=== PATIENT | female | born 1970 | race Caucasian/White ===

== ENCOUNTER 2017-05-11 19:22 | Inpatient (IN) | payer BC, MEDICAID ==
[~2017-05-11] VITALS: Ht 170.2 cm; Wt 88.9 kg
[~2017-05-11 19:22] MED LIST: etomidate 2mg/ml inj. ONE; rocuronium 10mg/ml inj IV ONE; sod chloride 0.9% 10ml flush syringe IV ONE
[2017-05-11] MEDS ORDERED: propofol 1000mg/100ml bottle 100 ML IV ONE ×3 (19:40→19:55)
[2017-05-11] MEDS ORDERED: MIDAZolam 5mg/ml 2ml vial IV ONE ×2 (19:40→19:55)
[2017-05-11] MEDS ORDERED: etomidate 2mg/ml inj. IV ONE ×2 (19:40→19:55)
[2017-05-11] MEDS ORDERED: rocuronium 10mg/ml inj IV ONE ×2 (19:40→19:55)
[2017-05-11] MEDS ORDERED: normal saline 1000ML IV soln IVB ONE (19:55)
[2017-05-11] MEDS ORDERED: metroNIDAZOLE-Flagyl 500mg/NS 100 ML IV STA (19:59)
[2017-05-11] MEDS ORDERED: vancomycin/NS 1 GM ADD-VANTAGE 250 ML IV ONE (20:00)
[2017-05-11] MEDS ORDERED: piperacillin/tazo 3.375gm/50ml 50 ML IV ONE (20:00)
[2017-05-11 20:13] LABS: URINE HCG NEGATIVE (NEG)
[2017-05-11 20:14] LABS: PARTIAL THROMBOPLASTIN TIME 26 SECONDS (22-32); PROTHROMBIN TIME 10.1 SECONDS (9.0-12.0)
[2017-05-11 20:22] LABS: CLARITY,URINE Clear (Clear); COLOR,URINE Yellow (Yellow); GLUCOSE, URINE Negative (Neg); KETONES,URINE Trace mg/dl (Neg); LEUKOCYTE ESTERASE ,URINE Negative (Neg); NITRITES, URINE Negative (Neg); OCCULT BLOOD,URINE Trace-Intact (Neg); PROTEIN,URINE 30 mg/dl (Neg)
[2017-05-11 20:25] LABS: ABG BASE EXCESS -2.8 mmol/L (-2.0-3.0); ABG HCO3 21.5 mmol/L (22.0-26.0); ABG OXYGEN SATURATION 98.8 % (95-98); ABG PCO2 (T) 35.8 mmHg (32.0-45.0); ABG PH (T) 7.396 (7.350-7.450); ABG PO2 (T) 164.3 mmHg (83-108); FCOHb 0.2 % (0.5-1.5); FMetHb 0.2 % (0.3-1.12); FO2Hb 98.4 % (94-100); MINUTE VOLUME 9 L/min; PEEP 5 cm H2O; RESPIRATORY RATE 18 b/min; RESPIRATORY RATE (OBSERVED) 18 b/min; TIDAL VOLUME 450 mL; TOTAL HEMOGLOBIN 12.7 G/dl (12.0-16.0)
[2017-05-11 20:28] LABS: URINE AMPHETAMINE SCREEN NEGATIVE (Neg); URINE BARBITUATE SCREEN NEGATIVE (Neg); URINE BENZODIAZEPINES SCREEN POSITIVE (Neg); URINE CANNABINOID SCREEN NEGATIVE (Neg); URINE COCAINE SCREEN NEGATIVE (Neg); URINE METHADONE SCREEN NEGATIVE (Neg); URINE OPIATE SCREEN NEGATIVE (Neg); URINE PHENCYCLIDINE SCREEN NEGATIVE (Neg)
[2017-05-11 20:29] LABS: UA COLLECTION TYPE FOLEY CATH
[2017-05-11 20:31] LABS: ALANINE AMINOTRANSFERASE 31 U/L (12-78); ALBUMIN 3.6 G/DL (3.4-5.0); ALKALINE PHOSPHATASE 70 IU/L (46-116); ANION GAP 15 (8-16); ASPARTATE AMINO TRANSFERASE 14 U/L (10-37); BILIRUBIN,TOTAL 0.6 MG/DL (0.1-1.0); BLOOD UREA NITROGEN 8 MG/DL (7-18); BUN/CREATININE RATIO 7.3 (6.6-38.0); CHLORIDE 100 MMOL/L (99-107); GLUCOSE 175 MG/DL (70-104); MAGNESIUM 1.9 MG/DL (1.5-2.4); POTASSIUM 3.2 MMOL/L (3.5-5.1); SODIUM 139 MMOL/L (135-145); TOTAL CARBON DIOXIDE 24.2 MMOL/L (24-32); TOTAL PROTEIN 7.3 G/DL (6.4-8.2); eGFR 54 ML/MIN
[2017-05-11 20:32] LABS: BACTERIA,URINE FEW /HPF (Neg); WBC,URINE NONE SEEN /HPF (0-4)
[2017-05-11 20:33] LABS: MUCUS STRANDS FEW /LPF (Neg); SQUAMOUS EPITHELIAL CELL,UR FEW /LPF (FEW)
[2017-05-11] MEDS ORDERED: ALPR-624 PO (20:33)
[2017-05-11] MEDS ORDERED: BENZ-16 PO (20:33)
[2017-05-11] MEDS ORDERED: LORA10TA7 PO (20:34)
[2017-05-11] MEDS ORDERED: DIVA-81 PO (20:34)
[2017-05-11 20:35] LABS: ACETAMINOPHEN < 2.0 UG/ML (10-30); ETHANOL < 0.010 GM/DL (0.0-0.010)
[2017-05-11] MEDS ORDERED: ZOLP5TAB8 PO (20:35)
[2017-05-11] MEDS ORDERED: HYDR-3965 PO (20:35)
[2017-05-11 20:38] LABS: BASOPHILS % (AUTO) 0.1 % (0-1); EOSINOPHILS # (AUTO) 0.1 X10'3 (0-0.9); EOSINOPHILS % (AUTO) 1.2 % (0-6); HEMATOCRIT 35.5 % (35.0-45.0); HEMOGLOBIN 12.6 g/dl (12.0-16.0); LYMPHOCYTES # (AUTO) 1.6 X10'3 (1.1-4.8); LYMPHOCYTES % (AUTO) 30.1 % (21-51); MEAN CORPUSCULAR HEMOGLOBIN 32.3 PG (27.0-31.0); MEAN CORPUSCULAR HGB CONC 35.4 % (33.0-36.5); MEAN CORPUSCULAR VOLUME 91.3 FL (78-98); MEAN PLATELET VOLUME 6.9 FL (7.4-10.4); MONOCYTES # (AUTO) 0.4 X10'3 (0-0.9); MONOCYTES % (AUTO) 6.8 % (2-12); NEUTROPHILS # (AUTO) 3.3 X10'3 (1.8-7.7); NEUTROPHILS % (AUTO) 61.8 % (42-75); PLATELET COUNT 242 X10'3 (140-440); RED BLOOD COUNT 3.89 X10'6 (4.20-5.60); RED CELL DISTRIBUTION WIDTH 13.1 % (11.5-14.5); WHITE BLOOD COUNT 5.3 X10'3 (4.5-11.0)
[2017-05-11] MEDS ORDERED: QUET-1 PO (20:56)
[2017-05-11] MEDS ORDERED: potassium Cl 40MEQ/NS 500ml 500 ML IV PRN ×2 (21:40)
[2017-05-11] MEDS ORDERED: potassium Cl 40MEQ/250ML bag 250 ML IV PRN (21:40)
[2017-05-11] MEDS ORDERED: sodium phosphate inj. 15 MMOL in dextrose 5%-water 150 ML IV PRN (21:40)
[2017-05-11] MEDS ORDERED: magnesium 2GM in 50ml NS 50 ML IV PRN (21:40)
[2017-05-11] MEDS ORDERED: sodium phosphate inj. 30 MMOL in dextrose 5%-water 250 ML IV PRN (21:40)
[2017-05-11] MEDS ORDERED: magnesium 4gm in 100ml NS 100 ML IV PRN (21:40)
[2017-05-11] MEDS ORDERED: albuterol 2.5 MG/3 ML nebule NEB PRN (21:40)
[2017-05-11 22:10] LABS: PHOSPHORUS 3.1 MG/DL (2.3-4.5)
[2017-05-11] MEDS: potassium Cl 40MEQ/250ML bag 250 ML IV PRN (22:47)
[2017-05-11] MEDS: pantoprazole 40 MG vial IV SCH (22:55)
[2017-05-11 23:00] VITALS: BP 117/80
[2017-05-11 23:06] LABS: OXYGEN SATURATION (MIXED VEN) 78.9 % (60-80)
[2017-05-11 23:10] LABS: ABG HCO3 20.8 mmol/L (22.0-26.0); ABG OXYGEN SATURATION 97.5 % (95-98); ABG PCO2 (T) 27.2 mmHg (32.0-45.0); ABG PH (T) 7.495 (7.350-7.450); ALLEN'S TEST Positive; FCOHb 0.3 % (0.5-1.5); FMetHb 0.3 % (0.3-1.12); FO2Hb 96.9 % (94-100); MINUTE VOLUME 9 L/min; PATIENT TEMPERATURE 35.2; PEEP 5 cm H2O; RESPIRATORY RATE 18 b/min; TIDAL VOLUME 450 mL; TOTAL HEMOGLOBIN 11.5 G/dl (12.0-16.0)
[2017-05-12] VITALS (22 sets, daily range): BP systolic 91–157; BP diastolic 60–92
[2017-05-12] MEDS ORDERED: midazolam 100mg in NS 100ml 100 ML IV PRN (00:20)
[2017-05-12] MEDS: FENTANYL-0.9 % NACL/PF 100 ML IV PRN (00:50)
[2017-05-12] MEDS ORDERED: magnesium 2GM in 50ml NS 50 ML IV ONE (01:15)
[2017-05-12] MEDS: normal saline 1000ml 1,000 ML IV SCH ×2 (01:29→10:45)
[2017-05-12 01:39] LABS: INR 1.1 INR; PARTIAL THROMBOPLASTIN TIME 28 SECONDS (22-32); PROTHROMBIN TIME 11.2 SECONDS (9.0-12.0)
[2017-05-12] MEDS: piperacillin-tazo 2.25gm/50ml 50 ML IV SCH ×4 (01:39→19:34)
[2017-05-12 01:40] LABS: BASOPHILS % (AUTO) 0.1 % (0-1); EOSINOPHILS % (AUTO) 0.5 % (0-6); HEMATOCRIT 28.4 % (35.0-45.0); HEMOGLOBIN 10.1 g/dl (12.0-16.0); LYMPHOCYTES # (AUTO) 1.9 X10'3 (1.1-4.8); LYMPHOCYTES % (AUTO) 27.2 % (21-51); MEAN CORPUSCULAR HEMOGLOBIN 32.3 PG (27.0-31.0); MEAN CORPUSCULAR HGB CONC 35.6 % (33.0-36.5); MEAN CORPUSCULAR VOLUME 90.8 FL (78-98); MEAN PLATELET VOLUME 6.6 FL (7.4-10.4); MONOCYTES # (AUTO) 0.6 X10'3 (0-0.9); MONOCYTES % (AUTO) 8.1 % (2-12); NEUTROPHILS # (AUTO) 4.5 X10'3 (1.8-7.7); NEUTROPHILS % (AUTO) 64.1 % (42-75); PLATELET COUNT 219 X10'3 (140-440); RED BLOOD COUNT 3.13 X10'6 (4.20-5.60); RED CELL DISTRIBUTION WIDTH 12.4 % (11.5-14.5)
[2017-05-12 02:55] LABS: ACETAMINOPHEN < 2.0 UG/ML (10-30); ALANINE AMINOTRANSFERASE 26 U/L (12-78); ALBUMIN 2.9 G/DL (3.4-5.0); ALKALINE PHOSPHATASE 53 IU/L (46-116); ASPARTATE AMINO TRANSFERASE 14 U/L (10-37); BILIRUBIN,TOTAL 0.6 MG/DL (0.1-1.0); BLOOD UREA NITROGEN 7 MG/DL (7-18); BUN/CREATININE RATIO 7.8 (6.6-38.0); CALCIUM 7.7 MG/DL (8.5-10.1); GLUCOSE 84 MG/DL (70-104); MAGNESIUM 1.9 MG/DL (1.5-2.4); PHOSPHORUS 2.2 MG/DL (2.3-4.5); TOTAL PROTEIN 5.9 G/DL (6.4-8.2); eGFR 68 ML/MIN
[2017-05-12 03:14] LABS: ANION GAP 10 (8-16); CHLORIDE 107 MMOL/L (99-107); SODIUM 142 MMOL/L (135-145)
[2017-05-12 03:23] LABS: VALPROATE 124.2 UG/ML (50-100)
[2017-05-12] MEDS ORDERED: calcium chloride 100 MG/1 ML inj IV ONE (03:55)
[2017-05-12 05:01] LABS: ABG BASE EXCESS -2.7 mmol/L (-2.0-3.0); ABG HCO3 21.6 mmol/L (22.0-26.0); ABG OXYGEN SATURATION 97.5 % (95-98); ABG PCO2 (T) 35.6 mmHg (32.0-45.0); ABG PO2 (T) 111.4 mmHg (83-108); ALLEN'S TEST Positive; FCOHb 0.2 % (0.5-1.5); FMetHb 0.1 % (0.3-1.12); FO2Hb 97.2 % (94-100); MINUTE VOLUME 7 L/min; PATIENT TEMPERATURE 36.9; PEEP 5 cm H2O; RESPIRATORY RATE 14 b/min; RESPIRATORY RATE (OBSERVED) 14 b/min; TIDAL VOLUME 450 mL; TOTAL HEMOGLOBIN 10.6 G/dl (12.0-16.0)
[2017-05-12 05:49] LABS: ALANINE AMINOTRANSFERASE 26 U/L (12-78); ALBUMIN 2.8 G/DL (3.4-5.0); ALKALINE PHOSPHATASE 52 IU/L (46-116); ANION GAP 11 (8-16); ASPARTATE AMINO TRANSFERASE 11 U/L (10-37); BILIRUBIN,TOTAL 0.5 MG/DL (0.1-1.0); BLOOD UREA NITROGEN 7 MG/DL (7-18); BUN/CREATININE RATIO 7.8 (6.6-38.0); CALCIUM 9.2 MG/DL (8.5-10.1); CHLORIDE 107 MMOL/L (99-107); GLUCOSE 105 MG/DL (70-104); MAGNESIUM 2.7 MG/DL (1.5-2.4); PHOSPHORUS 3.8 MG/DL (2.3-4.5); POTASSIUM 3.3 MMOL/L (3.5-5.1); SODIUM 142 MMOL/L (135-145); TOTAL CARBON DIOXIDE 23.8 MMOL/L (24-32); TOTAL PROTEIN 5.7 G/DL (6.4-8.2); TROPONIN I < 0.04 NG/ML (0.0-0.05); VALPROATE 120 UG/ML (50-100); eGFR 68 ML/MIN
[2017-05-12] MEDS: pantoprazole 40 MG vial IV SCH (08:09)
[2017-05-12] MEDS: heparin, porcine 5000 units/ml vial SQ SCH ×2 (08:09→19:34)
[2017-05-12] MEDS: potassium Cl 40MEQ/250ML bag 250 ML IV PRN ×2 (08:24→20:42)
[2017-05-12 09:13] LABS: ALANINE AMINOTRANSFERASE 23 U/L (12-78); ALBUMIN 2.9 G/DL (3.4-5.0); ALKALINE PHOSPHATASE 56 IU/L (46-116); ANION GAP 11 (8-16); ASPARTATE AMINO TRANSFERASE 11 U/L (10-37); BILIRUBIN,TOTAL 0.5 MG/DL (0.1-1.0); BLOOD UREA NITROGEN 5 MG/DL (7-18); CALCIUM 8.2 MG/DL (8.5-10.1); CHLORIDE 108 MMOL/L (99-107); GLUCOSE 113 MG/DL (70-104); POTASSIUM 3.6 MMOL/L (3.5-5.1); SODIUM 142 MMOL/L (135-145); TOTAL CARBON DIOXIDE 23.4 MMOL/L (24-32); TOTAL PROTEIN 5.8 G/DL (6.4-8.2); VALPROATE 123 UG/ML (50-100); eGFR 60 ML/MIN
[2017-05-12] MEDS ORDERED: SODIUM BICARBONATE IV SCH (10:55)
[2017-05-12] MEDS ORDERED: SODIUM CHLORIDE 0.45% IV SCH (10:55)
[2017-05-12] MEDS: sodium bicarbonate (8.4%) inj. 75 MEQ in sodium chloride 0.45% 1,000 ML IV SCH (12:56)
[2017-05-12 14:54] LABS: ALANINE AMINOTRANSFERASE 25 U/L (12-78); ALBUMIN 3.1 G/DL (3.4-5.0); ALKALINE PHOSPHATASE 59 IU/L (46-116); ANION GAP 12 (8-16); ASPARTATE AMINO TRANSFERASE 13 U/L (10-37); BILIRUBIN,TOTAL 0.5 MG/DL (0.1-1.0); BLOOD UREA NITROGEN 3 MG/DL (7-18); BUN/CREATININE RATIO 3.8 (6.6-38.0); CALCIUM 8.4 MG/DL (8.5-10.1); CHLORIDE 110 MMOL/L (99-107); GLUCOSE 111 MG/DL (70-104); POTASSIUM 3.6 MMOL/L (3.5-5.1); SODIUM 145 MMOL/L (135-145); TOTAL CARBON DIOXIDE 23.4 MMOL/L (24-32); TOTAL PROTEIN 6.2 G/DL (6.4-8.2); VALPROATE 136 UG/ML (50-100); eGFR 78 ML/MIN
[2017-05-12 17:24] LABS: ALANINE AMINOTRANSFERASE 24 U/L (12-78); ALBUMIN 3.2 G/DL (3.4-5.0); ALKALINE PHOSPHATASE 63 IU/L (46-116); ANION GAP 9 (8-16); ASPARTATE AMINO TRANSFERASE 13 U/L (10-37); BILIRUBIN,TOTAL 0.7 MG/DL (0.1-1.0); BLOOD UREA NITROGEN 2 MG/DL (7-18); BUN/CREATININE RATIO 2.5 (6.6-38.0); CALCIUM 8.6 MG/DL (8.5-10.1); CHLORIDE 109 MMOL/L (99-107); GLUCOSE 97 MG/DL (70-104); POTASSIUM 3.4 MMOL/L (3.5-5.1); SODIUM 144 MMOL/L (135-145); TOTAL CARBON DIOXIDE 25.6 MMOL/L (24-32); TOTAL PROTEIN 6.4 G/DL (6.4-8.2); eGFR 78 ML/MIN
[2017-05-12 17:47] LABS: VALPROATE 163 UG/ML (50-100)
[2017-05-12 21:41] LABS: ALANINE AMINOTRANSFERASE 25 U/L (12-78); ALBUMIN 3.2 G/DL (3.4-5.0); ALBUMIN/GLOBULIN RATIO 0.9 (1.1-1.5); ALKALINE PHOSPHATASE 62 IU/L (46-116); ANION GAP 10 (8-16); ASPARTATE AMINO TRANSFERASE 13 U/L (10-37); BILIRUBIN,TOTAL 0.7 MG/DL (0.1-1.0); BLOOD UREA NITROGEN 2 MG/DL (7-18); BUN/CREATININE RATIO 2.5 (6.6-38.0); CALCIUM 8.7 MG/DL (8.5-10.1); CHLORIDE 107 MMOL/L (99-107); GLUCOSE 107 MG/DL (70-104); POTASSIUM 3.2 MMOL/L (3.5-5.1); SODIUM 142 MMOL/L (135-145); TOTAL CARBON DIOXIDE 25.4 MMOL/L (24-32); TOTAL PROTEIN 6.6 G/DL (6.4-8.2); VALPROATE 183 UG/ML (50-100); eGFR 78 ML/MIN
[2017-05-12] MEDS ORDERED: PEG 3350/Na sulf,bicarb,Cl/KCl oral sol 4 liter bottle PO ONE (22:25)
[2017-05-13] VITALS (24 sets, daily range): BP systolic 109–162; BP diastolic 71–95
[2017-05-13] MEDS: sodium bicarbonate (8.4%) inj. 75 MEQ in sodium chloride 0.45% 1,000 ML IV SCH ×2 (01:29→10:54)
[2017-05-13] MEDS: piperacillin-tazo 2.25gm/50ml 50 ML IV SCH ×4 (01:29→20:14)
[2017-05-13 02:21] LABS: ALANINE AMINOTRANSFERASE 26 U/L (12-78); ALBUMIN 3.2 G/DL (3.4-5.0); ALBUMIN/GLOBULIN RATIO 0.9 (1.1-1.5); ALKALINE PHOSPHATASE 64 IU/L (46-116); ANION GAP 12 (8-16); ASPARTATE AMINO TRANSFERASE 19 U/L (10-37); BILIRUBIN,TOTAL 0.8 MG/DL (0.1-1.0); BLOOD UREA NITROGEN 3 MG/DL (7-18); BUN/CREATININE RATIO 3.8 (6.6-38.0); CALCIUM 8.7 MG/DL (8.5-10.1); CHLORIDE 106 MMOL/L (99-107); GLUCOSE 94 MG/DL (70-104); POTASSIUM 3.6 MMOL/L (3.5-5.1); SODIUM 142 MMOL/L (135-145); TOTAL PROTEIN 6.6 G/DL (6.4-8.2); VALPROATE 169 UG/ML (50-100); eGFR 78 ML/MIN
[2017-05-13 03:51] LABS: ABG BASE EXCESS 0.9 mmol/L (-2.0-3.0); ABG OXYGEN SATURATION 95.4 % (95-98); ABG PCO2 (T) 20.8 mmHg (32.0-45.0); ABG PH (T) 7.619 (7.350-7.450); ABG PO2 (T) 67.7 mmHg (83-108); ALLEN'S TEST Positive; FCOHb 0.3 % (0.5-1.5); FO2Hb 95.1 % (94-100); MINUTE VOLUME 10 L/min; PATIENT TEMPERATURE 36.1; PEEP 5 cm H2O; RESPIRATORY RATE 18 b/min; RESPIRATORY RATE (OBSERVED) 18 b/min; TIDAL VOLUME 500 mL; TOTAL HEMOGLOBIN 11.5 G/dl (12.0-16.0)
[2017-05-13 05:17] LABS: BASOPHILS # (AUTO) 0.1 X10'3 (0-0.2); BASOPHILS % (AUTO) 1.3 % (0-1); EOSINOPHILS # (AUTO) 0.1 X10'3 (0-0.9); EOSINOPHILS % (AUTO) 0.9 % (0-6); HEMOGLOBIN 10.6 g/dl (12.0-16.0); LYMPHOCYTES # (AUTO) 1.9 X10'3 (1.1-4.8); LYMPHOCYTES % (AUTO) 29.4 % (21-51); MEAN CORPUSCULAR HEMOGLOBIN 31.9 PG (27.0-31.0); MEAN CORPUSCULAR HGB CONC 35.2 % (33.0-36.5); MEAN CORPUSCULAR VOLUME 90.5 FL (78-98); MEAN PLATELET VOLUME 6.4 FL (7.4-10.4); MONOCYTES # (AUTO) 0.6 X10'3 (0-0.9); MONOCYTES % (AUTO) 8.8 % (2-12); NEUTROPHILS # (AUTO) 3.9 X10'3 (1.8-7.7); NEUTROPHILS % (AUTO) 59.6 % (42-75); PLATELET COUNT 248 X10'3 (140-440); RED BLOOD COUNT 3.32 X10'6 (4.20-5.60); RED CELL DISTRIBUTION WIDTH 13.2 % (11.5-14.5); WHITE BLOOD COUNT 6.6 X10'3 (4.5-11.0)
[2017-05-13 05:27] LABS: INR 1.1 INR; PARTIAL THROMBOPLASTIN TIME 32 SECONDS (22-32)
[2017-05-13 05:35] LABS: ALANINE AMINOTRANSFERASE 26 U/L (12-78); ALBUMIN 3.2 G/DL (3.4-5.0); ALKALINE PHOSPHATASE 65 IU/L (46-116); ANION GAP 10 (8-16); ASPARTATE AMINO TRANSFERASE 19 U/L (10-37); BILIRUBIN,TOTAL 0.8 MG/DL (0.1-1.0); BLOOD UREA NITROGEN 4 MG/DL (7-18); CALCIUM 8.3 MG/DL (8.5-10.1); CHLORIDE 106 MMOL/L (99-107); GLUCOSE 100 MG/DL (70-104); MAGNESIUM 1.9 MG/DL (1.5-2.4); PHOSPHORUS 2.7 MG/DL (2.3-4.5); POTASSIUM 3.3 MMOL/L (3.5-5.1); SODIUM 143 MMOL/L (135-145); TOTAL CARBON DIOXIDE 27.4 MMOL/L (24-32); TOTAL PROTEIN 6.4 G/DL (6.4-8.2); VALPROATE 148 UG/ML (50-100); eGFR 78 ML/MIN
[2017-05-13] MEDS: potassium Cl 40MEQ/250ML bag 250 ML IV PRN (05:41)
[2017-05-13] MEDS: FENTANYL-0.9 % NACL/PF 100 ML IV PRN (07:34)
[2017-05-13] MEDS: heparin, porcine 5000 units/ml vial SQ SCH ×2 (07:39→20:14)
[2017-05-13] MEDS: LACTOBACILLUS RHAMNOSUS GG 15 billion unit sprinkle caps PO SCH (07:39)
[2017-05-13] MEDS: pantoprazole 40 MG vial IV SCH (07:39)
[2017-05-13 09:30] LABS: ALANINE AMINOTRANSFERASE 27 U/L (12-78); ALBUMIN 3.1 G/DL (3.4-5.0); ALKALINE PHOSPHATASE 64 IU/L (46-116); ANION GAP 9 (8-16); ASPARTATE AMINO TRANSFERASE 18 U/L (10-37); BILIRUBIN,TOTAL 0.9 MG/DL (0.1-1.0); BLOOD UREA NITROGEN 2 MG/DL (7-18); BUN/CREATININE RATIO 2.5 (6.6-38.0); CALCIUM 8.1 MG/DL (8.5-10.1); CHLORIDE 107 MMOL/L (99-107); GLUCOSE 112 MG/DL (70-104); POTASSIUM 3.8 MMOL/L (3.5-5.1); SODIUM 143 MMOL/L (135-145); TOTAL PROTEIN 6.3 G/DL (6.4-8.2); VALPROATE 119 UG/ML (50-100); eGFR 78 ML/MIN
[2017-05-13 13:19] LABS: ALANINE AMINOTRANSFERASE 31 U/L (12-78); ALBUMIN 3.2 G/DL (3.4-5.0); ALBUMIN/GLOBULIN RATIO 0.9 (1.1-1.5); ALKALINE PHOSPHATASE 66 IU/L (46-116); ANION GAP 11 (8-16); ASPARTATE AMINO TRANSFERASE 23 U/L (10-37); BILIRUBIN,TOTAL 0.8 MG/DL (0.1-1.0); BLOOD UREA NITROGEN 2 MG/DL (7-18); BUN/CREATININE RATIO 2.5 (6.6-38.0); CALCIUM 8.5 MG/DL (8.5-10.1); CHLORIDE 107 MMOL/L (99-107); GLUCOSE 105 MG/DL (70-104); POTASSIUM 3.7 MMOL/L (3.5-5.1); SODIUM 146 MMOL/L (135-145); TOTAL PROTEIN 6.6 G/DL (6.4-8.2); VALPROATE 111 UG/ML (50-100); eGFR 78 ML/MIN
[2017-05-13] MEDS ORDERED: furosemide 40mg/4ml inj IV ONE (13:30)
[2017-05-13] MEDS ORDERED: levoFLOXACIN 500mg tablet PO ONE (13:35)
[2017-05-13] MEDS ORDERED: OXYC-511 (13:49)
[2017-05-13 17:40] LABS: ALANINE AMINOTRANSFERASE 35 U/L (12-78); ALBUMIN 3.8 G/DL (3.4-5.0); ALBUMIN/GLOBULIN RATIO 0.9 (1.1-1.5); ALKALINE PHOSPHATASE 77 IU/L (46-116); ANION GAP 13 (8-16); ASPARTATE AMINO TRANSFERASE 27 U/L (10-37); BILIRUBIN,TOTAL 0.9 MG/DL (0.1-1.0); BLOOD UREA NITROGEN 2 MG/DL (7-18); BUN/CREATININE RATIO 2.2 (6.6-38.0); CALCIUM 9.5 MG/DL (8.5-10.1); CHLORIDE 103 MMOL/L (99-107); GLUCOSE 92 MG/DL (70-104); POTASSIUM 3.7 MMOL/L (3.5-5.1); SODIUM 144 MMOL/L (135-145); TOTAL CARBON DIOXIDE 27.9 MMOL/L (24-32); VALPROATE 120 UG/ML (50-100); eGFR 68 ML/MIN
[2017-05-13 21:16] LABS: ALANINE AMINOTRANSFERASE 32 U/L (12-78); ALBUMIN 3.6 G/DL (3.4-5.0); ALBUMIN/GLOBULIN RATIO 0.9 (1.1-1.5); ALKALINE PHOSPHATASE 73 IU/L (46-116); ANION GAP 11 (8-16); ASPARTATE AMINO TRANSFERASE 26 U/L (10-37); BILIRUBIN,TOTAL 0.8 MG/DL (0.1-1.0); BLOOD UREA NITROGEN 3 MG/DL (7-18); CALCIUM 9.4 MG/DL (8.5-10.1); CHLORIDE 102 MMOL/L (99-107); GLUCOSE 108 MG/DL (70-104); POTASSIUM 3.5 MMOL/L (3.5-5.1); SODIUM 141 MMOL/L (135-145); TOTAL CARBON DIOXIDE 27.9 MMOL/L (24-32); TOTAL PROTEIN 7.6 G/DL (6.4-8.2); VALPROATE 99 UG/ML (50-100); eGFR 60 ML/MIN
[2017-05-14] VITALS (20 sets, daily range): BP systolic 117–156; BP diastolic 77–101
[2017-05-14 00:58] LABS: ALANINE AMINOTRANSFERASE 31 U/L (12-78); ALBUMIN 3.6 G/DL (3.4-5.0); ALBUMIN/GLOBULIN RATIO 0.9 (1.1-1.5); ALKALINE PHOSPHATASE 74 IU/L (46-116); ANION GAP 10 (8-16); ASPARTATE AMINO TRANSFERASE 22 U/L (10-37); BILIRUBIN,TOTAL 0.8 MG/DL (0.1-1.0); BLOOD UREA NITROGEN 4 MG/DL (7-18); BUN/CREATININE RATIO 3.3 (6.6-38.0); CALCIUM 9.2 MG/DL (8.5-10.1); CHLORIDE 101 MMOL/L (99-107); GLUCOSE 114 MG/DL (70-104); POTASSIUM 3.4 MMOL/L (3.5-5.1); SODIUM 141 MMOL/L (135-145); TOTAL CARBON DIOXIDE 30.3 MMOL/L (24-32); TOTAL PROTEIN 7.7 G/DL (6.4-8.2); VALPROATE 92 UG/ML (50-100); eGFR 49 ML/MIN
[2017-05-14] MEDS: piperacillin-tazo 2.25gm/50ml 50 ML IV SCH ×2 (02:26→07:40)
[2017-05-14 06:01] LABS: BASOPHILS % (AUTO) 0.4 % (0-1); EOSINOPHILS # (AUTO) 0.1 X10'3 (0-0.9); EOSINOPHILS % (AUTO) 1.8 % (0-6); HEMOGLOBIN 11.8 g/dl (12.0-16.0); LYMPHOCYTES % (AUTO) 28.3 % (21-51); MEAN CORPUSCULAR HEMOGLOBIN 32.3 PG (27.0-31.0); MEAN CORPUSCULAR HGB CONC 35.9 % (33.0-36.5); MEAN PLATELET VOLUME 6.5 FL (7.4-10.4); MONOCYTES # (AUTO) 0.8 X10'3 (0-0.9); MONOCYTES % (AUTO) 11.8 % (2-12); NEUTROPHILS % (AUTO) 57.7 % (42-75); PLATELET COUNT 254 X10'3 (140-440); RED BLOOD COUNT 3.66 X10'6 (4.20-5.60); RED CELL DISTRIBUTION WIDTH 13.3 % (11.5-14.5)
[2017-05-14 06:02] LABS: PARTIAL THROMBOPLASTIN TIME 34 SECONDS (22-32); PROTHROMBIN TIME 10.7 SECONDS (9.0-12.0)
[2017-05-14 06:09] LABS: ALANINE AMINOTRANSFERASE 29 U/L (12-78); ALBUMIN 3.5 G/DL (3.4-5.0); ALBUMIN/GLOBULIN RATIO 0.9 (1.1-1.5); ALKALINE PHOSPHATASE 69 IU/L (46-116); ANION GAP 12 (8-16); ASPARTATE AMINO TRANSFERASE 19 U/L (10-37); BILIRUBIN,TOTAL 0.9 MG/DL (0.1-1.0); BLOOD UREA NITROGEN 5 MG/DL (7-18); BUN/CREATININE RATIO 4.5 (6.6-38.0); CALCIUM 9.2 MG/DL (8.5-10.1); CHLORIDE 100 MMOL/L (99-107); GLUCOSE 115 MG/DL (70-104); PHOSPHORUS 3.7 MG/DL (2.3-4.5); POTASSIUM 3.3 MMOL/L (3.5-5.1); SODIUM 140 MMOL/L (135-145); TOTAL CARBON DIOXIDE 27.7 MMOL/L (24-32); TOTAL PROTEIN 7.4 G/DL (6.4-8.2); VALPROATE 76 UG/ML (50-100); eGFR 54 ML/MIN
[2017-05-14] MEDS ORDERED: pantoprazole 40mg Tablet.DR PO SCH (07:30)
[2017-05-14] MEDS: LACTOBACILLUS RHAMNOSUS GG 15 billion unit sprinkle caps PO SCH (07:39)
[2017-05-14] MEDS: heparin, porcine 5000 units/ml vial SQ SCH (07:41)
[2017-05-14] MEDS ORDERED: potassium Cl 20 mEq SR tablet PO PRN (08:40)
[2017-05-14] MEDS: potassium Cl 20 mEq SR tablet PO PRN ×2 (09:35→15:02)
[2017-05-14] MEDS ORDERED: acetaminophen 325mg tablet PO PRN (09:40)
[2017-05-14 10:54] LABS: ALANINE AMINOTRANSFERASE 24 U/L (12-78); ALBUMIN 3.5 G/DL (3.4-5.0); ALBUMIN/GLOBULIN RATIO 0.9 (1.1-1.5); ALKALINE PHOSPHATASE 73 IU/L (46-116); ANION GAP 11 (8-16); ASPARTATE AMINO TRANSFERASE 19 U/L (10-37); BILIRUBIN,TOTAL 0.9 MG/DL (0.1-1.0); BLOOD UREA NITROGEN 5 MG/DL (7-18); CALCIUM 9.7 MG/DL (8.5-10.1); CHLORIDE 101 MMOL/L (99-107); GLUCOSE 136 MG/DL (70-104); POTASSIUM 3.4 MMOL/L (3.5-5.1); SODIUM 139 MMOL/L (135-145); TOTAL CARBON DIOXIDE 26.6 MMOL/L (24-32); TOTAL PROTEIN 7.6 G/DL (6.4-8.2); eGFR 60 ML/MIN
[2017-05-14] MEDS ORDERED: levoFLOXACIN 500mg tablet PO SCH (11:00)
[2017-05-14 14:12] LABS: ALANINE AMINOTRANSFERASE 26 U/L (12-78); ALBUMIN 3.6 G/DL (3.4-5.0); ALBUMIN/GLOBULIN RATIO 0.8 (1.1-1.5); ALKALINE PHOSPHATASE 74 IU/L (46-116); ANION GAP 10 (8-16); ASPARTATE AMINO TRANSFERASE 18 U/L (10-37); BILIRUBIN,TOTAL 0.8 MG/DL (0.1-1.0); BLOOD UREA NITROGEN 6 MG/DL (7-18); BUN/CREATININE RATIO 5.5 (6.6-38.0); CHLORIDE 100 MMOL/L (99-107); GLUCOSE 103 MG/DL (70-104); POTASSIUM 3.8 MMOL/L (3.5-5.1); SODIUM 137 MMOL/L (135-145); TOTAL CARBON DIOXIDE 26.6 MMOL/L (24-32); TOTAL PROTEIN 7.9 G/DL (6.4-8.2); eGFR 54 ML/MIN
[2017-05-14] MEDS ORDERED: ALPRAZolam 0.25mg tablet PO SCH (16:00)
[2017-05-14] MEDS ORDERED: ALPRAZolam 0.5mg tablet PO SCH (17:17)
[2017-05-14] MEDS ORDERED: ALPRAZolam 0.5mg tablet PO ONE (17:30)
[2017-05-14 18:38] LABS: ALANINE AMINOTRANSFERASE 25 U/L (12-78); ALBUMIN 3.7 G/DL (3.4-5.0); ALBUMIN/GLOBULIN RATIO 0.9 (1.1-1.5); ALKALINE PHOSPHATASE 75 IU/L (46-116); ANION GAP 10 (8-16); ASPARTATE AMINO TRANSFERASE 18 U/L (10-37); BILIRUBIN,TOTAL 0.7 MG/DL (0.1-1.0); BLOOD UREA NITROGEN 6 MG/DL (7-18); CHLORIDE 100 MMOL/L (99-107); GLUCOSE 102 MG/DL (70-104); POTASSIUM 3.9 MMOL/L (3.5-5.1); SODIUM 138 MMOL/L (135-145); TOTAL CARBON DIOXIDE 27.8 MMOL/L (24-32); eGFR 60 ML/MIN
[2017-05-14] MEDS ORDERED: quetiapine 100mg tablet PO SCH (21:00)
[2017-05-14] MEDS ORDERED: divalproex sodium 500mg tablet.DR PO SCH ×2 (21:00)
[2017-05-15] MEDS ORDERED: divalproex sodium 500mg tablet.DR PO SCH (08:00)
[2017-05-15] MEDS ORDERED: FLU VACC QS2017-18 36MOS UP/PF 60 MCG/0.5 ML SYRINGE IMVAC ONE (10:00)
== END 2017-05-14 19:50 | DRG 812 ==
LOC: ER 19:22 → ED HOLD 21:39 → EDBEDREQ 21:51 → ICU 2S 22:17
PROVIDERS: ADMIT Internal Medicine Critical Care Medicine; ATTEND Internal Medicine Critical Care Medicine
DX: T50.902A Poisoning by unspecified drugs, medicaments and biological substances, intentional self-harm, initial encounter (principal); J96.00 Acute respiratory failure, unspecified whether with hypoxia or hypercapnia; G92 Toxic encephalopathy; R45.851 Suicidal ideations; F31.9 Bipolar disorder, unspecified; G47.00 Insomnia, unspecified; H91.3 Deaf nonspeaking, not elsewhere classified; Z79.899 Other long term (current) drug therapy
CPT/HCPCS: 36415; 36556; 36600; 71045; 80053; 80164; 80178; 80305; 80320; 80329; 81001; 81025; 82140; 82803; 82810; 82948; 83605; 83735; 83880; 84100; 84145; 84443; 84484; 85018; 85025; 85610; 85730; 87040; 87070; 93005; 94002; 94003; 94760; 96365; 96368; 96375; 97116; 97161; 97530; 99291; C9113; J1644; J1940; J2250; J2543; J2704; J3370; J3475; J3480; J3490; J7030; Q2037

== ENCOUNTER 2017-05-14 19:40 | Inpatient (IN) | payer OTHER, MEDICAID ==
[~2017-05-14] VITALS: Ht 170.2 cm; Wt 88.9 kg
[~2017-05-14 19:40] MED LIST changes: +ALPR-624 PO; +BENZ-16 PO; +DIVA-81 PO; +HYDR-3965 PO; +LORA10TA7 PO; +OXYC-511; +QUET-1 PO; +ZOLP5TAB8 PO; -etomidate 2mg/ml inj. ONE; -rocuronium 10mg/ml inj IV ONE; -sod chloride 0.9% 10ml flush syringe IV ONE
[2017-05-14 21:15] VITALS: BP 125/89
[2017-05-14] MEDS ORDERED: QUETIAPINE 150 MG TAB.SR.24H PO ONE (21:55)
[2017-05-14] MEDS: zolpidem 5mg tablet PO PRN (22:00)
[2017-05-15] MEDS ORDERED: mag hydrox/Alum hydrox/simeth 30ml oral suspension PO PRN (01:30)
[2017-05-15] MEDS ORDERED: magnesium hydroxide 30ml (MOM) UD suspension PO PRN (01:30)
[2017-05-15 07:34] LABS: CHOL/HDL RATIO 4.7 (0.00-4.99); CHOLESTEROL 226 MG/DL (0-200); HDL CHOLESTEROL 48 MG/DL (35-60); HEMOGLOBIN A1C 4.9 % (4.5-6.2); LDL CHOLESTEROL 130 MG/DL (50-100); TRIGLYCERIDES 315 MG/DL (20-135)
[2017-05-15] MEDS ORDERED: divalproex sod 250mg ER (24-hour) tablet PO SCH (08:00)
[2017-05-15] MEDS: benzonatate 100mg capsule PO SCH ×3 (08:54→21:02)
[2017-05-15] MEDS: ALPRAZolam 0.5mg tablet PO SCH ×2 (08:55→13:25)
[2017-05-15] MEDS: loratadine 10mg tablet PO SCH (08:55)
[2017-05-15] MEDS: acetaminophen 325mg tablet PO PRN (13:51)
[2017-05-15 20:00] VITALS: BP 138/93
[2017-05-15] MEDS ORDERED: QUETIAPINE 150 MG TAB.SR.24H PO SCH (21:00)
[2017-05-15] MEDS ORDERED: QUETIAPINE 200 MG TAB.SR.24H PO SCH (21:00)
[2017-05-15] MEDS ORDERED: quetiapine 100mg tablet PO SCH (21:00)
[2017-05-15] MEDS: HYDROcodone/acetaminophen 5mg/325mg tablet PO PRN (21:03)
[2017-05-15] MEDS: clonazePAM 0.5mg tablet PO SCH (21:03)
[2017-05-15] MEDS: zolpidem 5mg tablet PO PRN (23:22)
[2017-05-16 07:45] VITALS: BP 103/62
[2017-05-16] MEDS: loratadine 10mg tablet PO SCH (08:25)
[2017-05-16] MEDS: clonazePAM 0.5mg tablet PO SCH ×2 (08:25→21:27)
[2017-05-16] MEDS: benzonatate 100mg capsule PO SCH ×3 (08:25→21:25)
[2017-05-16] MEDS: divalproex sod 250mg ER (24-hour) tablet PO SCH (08:25)
[2017-05-16] MEDS: acetaminophen 325mg tablet PO PRN (16:16)
[2017-05-16 16:28] LABS: CLARITY,URINE Clear (Clear); COLOR,URINE Yellow (Yellow); GLUCOSE, URINE Negative (Neg); KETONES,URINE Negative (Neg); LEUKOCYTE ESTERASE ,URINE Trace (Neg); NITRITES, URINE Negative (Neg); OCCULT BLOOD,URINE Large (Neg); PH,URINE 5.5 (4.8-8.0); PROTEIN,URINE Negative (Neg)
[2017-05-16 16:35] LABS: UA COLLECTION TYPE CLN CATCH MIDSTREAM
[2017-05-16 16:36] LABS: BACTERIA,URINE NONE SEEN /HPF (Neg); MUCUS STRANDS FEW /LPF (Neg); RBC,URINE 20-50 /HPF (0-2); SQUAMOUS EPITHELIAL CELL,UR MODERATE /LPF (FEW); WBC,URINE 0-4 /HPF (0-4)
[2017-05-16 19:31] VITALS: BP 125/89
[2017-05-16] MEDS ORDERED: normal saline 1000ml 1,000 ML IVB ONE (20:13)
[2017-05-16] MEDS: sodium chloride 0.45% 1,000 ML IV SCH (20:13)
[2017-05-16 20:58] LABS: BASOPHILS % (AUTO) 0.3 % (0-1); EOSINOPHILS # (AUTO) 0.2 X10'3 (0-0.9); EOSINOPHILS % (AUTO) 3.2 % (0-6); HEMATOCRIT 34.5 % (35.0-45.0); HEMOGLOBIN 12.2 g/dl (12.0-16.0); LYMPHOCYTES # (AUTO) 2.6 X10'3 (1.1-4.8); LYMPHOCYTES % (AUTO) 33.7 % (21-51); MEAN CORPUSCULAR HEMOGLOBIN 32.4 PG (27.0-31.0); MEAN CORPUSCULAR HGB CONC 35.3 % (33.0-36.5); MEAN CORPUSCULAR VOLUME 91.6 FL (78-98); MEAN PLATELET VOLUME 6.1 FL (7.4-10.4); MONOCYTES # (AUTO) 0.9 X10'3 (0-0.9); MONOCYTES % (AUTO) 11.2 % (2-12); NEUTROPHILS % (AUTO) 51.6 % (42-75); PLATELET COUNT 394 X10'3 (140-440); RED BLOOD COUNT 3.76 X10'6 (4.20-5.60); WHITE BLOOD COUNT 7.8 X10'3 (4.5-11.0)
[2017-05-16 21:14] LABS: ALBUMIN 3.9 G/DL (3.4-5.0); ANION GAP 11 (8-16); BILIRUBIN,TOTAL 0.6 MG/DL (0.1-1.0); BLOOD UREA NITROGEN 12 MG/DL (7-18); CALCIUM 9.9 MG/DL (8.5-10.1); CHLORIDE 102 MMOL/L (99-107); GLUCOSE 119 MG/DL (70-104); POTASSIUM 3.7 MMOL/L (3.5-5.1); SODIUM 141 MMOL/L (135-145); TOTAL CARBON DIOXIDE 28.2 MMOL/L (24-32); TOTAL PROTEIN 7.8 G/DL (6.4-8.2); eGFR 60 ML/MIN
[2017-05-16 21:15] LABS: ALANINE AMINOTRANSFERASE 23 U/L (12-78); ALKALINE PHOSPHATASE 68 IU/L (46-116); ASPARTATE AMINO TRANSFERASE 11 U/L (10-37)
[2017-05-16] MEDS: levoFLOXACIN 750MG TABLET PO SCH (21:28)
[2017-05-16] MEDS: zolpidem 5mg tablet PO PRN (21:30)
[2017-05-16] MEDS: HYDROcodone/acetaminophen 5mg/325mg tablet PO PRN (21:40)
[2017-05-17] MEDS: sodium chloride 0.45% 1,000 ML IV SCH ×2 (03:15→09:33)
[2017-05-17 07:38] VITALS: BP 114/75
[2017-05-17] MEDS: benzonatate 100mg capsule PO SCH ×2 (08:22→12:33)
[2017-05-17] MEDS: loratadine 10mg tablet PO SCH (08:22)
[2017-05-17] MEDS: clonazePAM 0.5mg tablet PO SCH (08:22)
[2017-05-17] MEDS: divalproex sod 250mg ER (24-hour) tablet PO SCH (08:22)
[2017-05-17] MEDS: levoFLOXACIN 750MG TABLET PO SCH (08:22)
[2017-05-17 11:00] LABS: CLARITY,URINE CLEAR (Clear); COLOR,URINE STRAW (Yellow); GLUCOSE, URINE NEGATIVE (Neg); KETONES,URINE NEGATIVE (Neg); LEUKOCYTE ESTERASE ,URINE NEGATIVE (Neg); NITRITES, URINE NEGATIVE (Neg); OCCULT BLOOD,URINE MODERATE (Neg); PROTEIN,URINE NEGATIVE (Neg); UA COLLECTION TYPE CLN CATCH MIDSTREAM; UROBILINOGEN,URINE 0.2 E.U/dL (0.2-1.0)
[2017-05-17 11:09] LABS: MUCUS STRANDS NONE SEEN /LPF (Neg); SQUAMOUS EPITHELIAL CELL,UR MODERATE /LPF (FEW)
[2017-05-17 11:10] LABS: BACTERIA,URINE NONE SEEN /HPF (Neg); WBC,URINE NONE SEEN /HPF (0-4)
[2017-05-17] MEDS ORDERED: HYDR-569 PO (16:06)
[2017-05-17] MEDS ORDERED: LEVO750T46 PO (16:06)
[2017-05-17] MEDS ORDERED: ZOLP5TAB8 PO (16:06)
[2017-05-17] MEDS ORDERED: DIVA500T9 PO (16:06)
[2017-05-17] MEDS ORDERED: LORA10TA65 PO (16:06)
[2017-05-17] MEDS ORDERED: QUET50TA15 PO (16:06)
[2017-05-17] MEDS ORDERED: CLON0.5T4 PO (16:06)
[2017-05-17] MEDS ORDERED: lactobacillus rhamnosus 10,000 MMU CELLS/CAPSULE PO SCH (17:30)
[2017-05-17] MEDS ORDERED: QUETIAPINE 200 MG TAB.SR.24H PO SCH (21:00)
[2017-05-17] MEDS ORDERED: QUETIAPINE 50 MG TAB.SR.24H PO SCH (21:00)
== END 2017-05-17 16:30 | disposition home or self-care (01) | DRG 885 ==
LOC: ADULT MH 19:40
PROVIDERS: ADMIT Psychiatry & Neurology Psychiatry; ATTEND Psychiatry & Neurology Psychiatry
DX: F39 Unspecified mood [affective] disorder (principal); R45.851 Suicidal ideations; F32.9 Major depressive disorder, single episode, unspecified; F43.10 Post-traumatic stress disorder, unspecified; F41.9 Anxiety disorder, unspecified; G89.29 Other chronic pain; M54.9 Dorsalgia, unspecified; Z91.410 Personal history of adult physical and sexual abuse; Z91.5 Personal history of self-harm
CPT/HCPCS: 36415; 80053; 80061; 81001; 83036; 85025; 87088; 99285; J7030

== ENCOUNTER 2018-12-11 17:02 | Emergency (ER) | payer MEDICAID, OTHER ==
[~2018-12-11] VITALS: Ht 162.6 cm; Wt 95.5 kg
[~2018-12-11 17:02] MED LIST changes: -ALPR-624 PO; -BENZ-16 PO; +CLON0.5T12 PO; +DIAZ5TAB PO; -DIVA-81 PO; +DIVA500T9 PO; -HYDR-3965 PO; +HYDR-4383 PO; +KETO10TA2 PO; +LEVO750T46 PO; +LORA10TA65 PO; -LORA10TA7 PO; +ONDA4TAB6 PO; +OXYB5TAB16 PO; +OXYC-145 PO; -OXYC-511; +PHEN-824 PO; -QUET-1 PO; +QUET50TA15 PO
[2018-12-11 17:49] LABS: CLARITY,URINE SLIGHTLY CLOUDY (Clear); COLOR,URINE YELLOW (Yellow); GLUCOSE, URINE NEGATIVE (Neg); KETONES,URINE NEGATIVE (Neg); LEUKOCYTE ESTERASE ,URINE SMALL (Neg); NITRITES, URINE NEGATIVE (Neg); OCCULT BLOOD,URINE LARGE (Neg); PROTEIN,URINE TRACE mg/dl (Neg); URINE HCG NEGATIVE (NEG); UROBILINOGEN,URINE 0.2 E.U/dL (0.2-1.0)
--- NOTE | 2018-12-11 17:50 | NUR ---
Dr. Zee at bedside.
[2018-12-11] MEDS ORDERED: ketorolac trometh. 30mg/ml inj. IV ONE (17:55)
[2018-12-11] MEDS ORDERED: ondansetron/PF 4mg/2ml inj IV ONE (17:55)
[2018-12-11 18:00] LABS: UA COLLECTION TYPE CLN CATCH MIDSTREAM
[2018-12-11 18:03] LABS: AMORPHOUS URATES 1+; BACTERIA,URINE 1+ /HPF (Neg); MUCUS STRANDS MANY /LPF (Neg); SQUAMOUS EPITHELIAL CELL,UR MANY /LPF (FEW); WBC,URINE 0-4 /HPF (0-4)
[2018-12-11 18:18] LABS: BASOPHILS % (AUTO) 0.4 % (0-1); EOSINOPHILS # (AUTO) 0.1 X10'3 (0-0.9); EOSINOPHILS % (AUTO) 1.8 % (0-6); HEMATOCRIT 35.3 % (35.0-45.0); HEMOGLOBIN 12.2 g/dl (12.0-16.0); LYMPHOCYTES # (AUTO) 2.5 X10'3 (1.1-4.8); LYMPHOCYTES % (AUTO) 37.2 % (21-51); MEAN CORPUSCULAR HEMOGLOBIN 31.6 PG (27.0-31.0); MEAN CORPUSCULAR HGB CONC 34.6 g/dL (33.0-36.5); MEAN CORPUSCULAR VOLUME 91.3 FL (78-98); MEAN PLATELET VOLUME 7.6 FL (7.4-10.4); MONOCYTES # (AUTO) 0.4 X10'3 (0-0.9); MONOCYTES % (AUTO) 6.4 % (2-12); NEUTROPHILS # (AUTO) 3.6 X10'3 (1.8-7.7); NEUTROPHILS % (AUTO) 54.2 % (42-75); PLATELET COUNT 226 X10'3 (140-440); RED BLOOD COUNT 3.87 X10'6 (4.20-5.60); RED CELL DISTRIBUTION WIDTH 13.2 % (11.5-14.5); WHITE BLOOD COUNT 6.7 X10'3 (4.5-11.0)
[2018-12-11] MEDS ORDERED: CefTRIAXone/D5W-Rocephin 1gm 50 ML IV ONE (18:25)
[2018-12-11 18:35] LABS: ALANINE AMINOTRANSFERASE 19 U/L (12-78); ALBUMIN 3.9 G/DL (3.4-5.0); ALBUMIN/GLOBULIN RATIO 1.2 (1.1-1.5); ALKALINE PHOSPHATASE 89 IU/L (46-116); AMYLASE 75 U/L (25-115); ANION GAP 11 (8-16); ASPARTATE AMINO TRANSFERASE 10 U/L (10-37); BILIRUBIN,TOTAL 0.6 MG/DL (0.1-1.0); BLOOD UREA NITROGEN 10 MG/DL (7-18); BUN/CREATININE RATIO 9.8 (6.6-38.0); CALCIUM 8.7 MG/DL (8.5-10.1); CHLORIDE 109 MMOL/L (99-107); CREATININE 1.02 MG/DL (0.40-0.90); GLUCOSE 96 MG/DL (70-104); LIPASE 242 U/L (73-393); POTASSIUM 3.8 MMOL/L (3.5-5.1); SODIUM 144 MMOL/L (135-145); TOTAL CARBON DIOXIDE 24.1 MMOL/L (24-32); TOTAL PROTEIN 7.2 G/DL (6.4-8.2); eGFR 58 ML/MIN
--- NOTE | 2018-12-11 18:52 | NUR ---
DR. MANZO BACK AT BEDSIDE TO CHECK ON PT. HE WILL GIVE HER ADTL PAIN AND NAUSEA MEDS. PT REPROTS NO RELIEF FROM THE TORADOL GIVEN 45 MIN AGO. PT REPORTS MINIMAL URINE OUTPUT OVER 24 HRS AND IS CONCERNED OF HER BLADDER JOYCE FULL. SHE REQUESTS THE MD CONSIDER DOING A STRAIGHT CATH AND EMPYING HER BLADDER PRIOR TO DC. SHE HAS HAD PROBLEM IN PAST WITH THIS AND HAD TO HAVE A CATHETER
[2018-12-11] MEDS ORDERED: normal saline 1000ml 1,000 ML IV ONE (18:55)
[2018-12-11] MEDS ORDERED: HYDROcodone/acetaminophen 5mg/325mg tablet PO ONE (18:55)
[2018-12-11] MEDS ORDERED: proCHLORperazine 10 MG/2 ml inj IV ONE (18:55)
[2018-12-11] MEDS ORDERED: HYDR-3965 PO (18:56)
[2018-12-11] MEDS ORDERED: ONDA8TAB6 PO (18:56)
[2018-12-11] MEDS ORDERED: CIPR-259 PO (18:56)
--- NOTE | 2018-12-11 19:07 | NUR ---
PT BLADDER SCANNED, 41 CC'S NOTED IN BLADDER, PT WITH NO BLADDER PAIN AND SOFT ABDOMEN. SHE HAD BEEN CONCERNED THAT SHE MIGHT BE RETAINING AND REQUIRE A STRAIGHT CATH TH DRAIN BLADDER. PT NOW CONTENT THAT THIS IS NOT THE CAUSE OF HER DISCOMFORT TO THE RIGHT FLANK.
[2018-12-11 19:37] VITALS: BP 128/53
== END 2018-12-11 19:40 | disposition home or self-care (01) ==
LOC: ER 17:03
DX: N20.0 Calculus of kidney (principal); F41.9 Anxiety disorder, unspecified; F32.9 Major depressive disorder, single episode, unspecified; Z56.0 Unemployment, unspecified; Z88.8 Allergy status to other drugs, medicaments and biological substances; Z79.899 Other long term (current) drug therapy
CPT/HCPCS: 36415; 80053; 81001; 81025; 82150; 83690; 85025; 85610; 96365; 96375; 99284; J0696; J0780; J1885; J2405; J7030

== ENCOUNTER 2019-02-10 09:21 | Emergency (ER) | payer MEDICAID, OTHER ==
[~2019-02-10 09:21] MED LIST changes: +ONDA8TAB6 PO
== END 2019-02-10 11:04 | disposition left against medical advice (07) ==
LOC: ER 09:21
DX: R31.9 Hematuria, unspecified (principal); Z53.21 Procedure and treatment not carried out due to patient leaving prior to being seen by health care provider

== ENCOUNTER 2019-02-13 17:07 | Emergency (ER) | payer MEDICAID, OTHER ==
[~2019-02-13] VITALS: Ht 162.6 cm; Wt 96.9 kg
[~2019-02-13 17:07] MED LIST changes: -CLON0.5T12 PO; +CLON0.5T4 PO
[2019-02-13 17:57] LABS: BASOPHILS % (AUTO) 0.4 % (0-1); EOSINOPHILS # (AUTO) 0.2 X10'3 (0-0.9); EOSINOPHILS % (AUTO) 1.9 % (0-6); HEMOGLOBIN 12.5 g/dl (12.0-16.0); LYMPHOCYTES # (AUTO) 2.6 X10'3 (1.1-4.8); LYMPHOCYTES % (AUTO) 24.5 % (21-51); MEAN CORPUSCULAR HEMOGLOBIN 31.6 PG (27.0-31.0); MEAN CORPUSCULAR HGB CONC 34.6 g/dL (33.0-36.5); MEAN CORPUSCULAR VOLUME 91.2 FL (78-98); MEAN PLATELET VOLUME 7.3 FL (7.4-10.4); MONOCYTES # (AUTO) 0.5 X10'3 (0-0.9); MONOCYTES % (AUTO) 4.6 % (2-12); NEUTROPHILS # (AUTO) 7.3 X10'3 (1.8-7.7); NEUTROPHILS % (AUTO) 68.6 % (42-75); PLATELET COUNT 246 X10'3 (140-440); RED BLOOD COUNT 3.95 X10'6 (4.20-5.60); RED CELL DISTRIBUTION WIDTH 13.7 % (11.5-14.5); WHITE BLOOD COUNT 10.7 X10'3 (4.5-11.0)
[2019-02-13 18:13] LABS: ALANINE AMINOTRANSFERASE 20 U/L (12-78); ALBUMIN 3.7 G/DL (3.4-5.0); ALBUMIN/GLOBULIN RATIO 0.9 (1.1-1.5); ALKALINE PHOSPHATASE 96 IU/L (46-116); AMYLASE 67 U/L (25-115); ANION GAP 8 (8-16); ASPARTATE AMINO TRANSFERASE 15 U/L (10-37); BLOOD UREA NITROGEN 6 MG/DL (7-18); BUN/CREATININE RATIO 5.5 (6.6-38.0); CALCIUM 9.2 MG/DL (8.5-10.1); CHLORIDE 104 MMOL/L (99-107); GLUCOSE 102 MG/DL (70-104); LIPASE 154 U/L (73-393); POTASSIUM 3.5 MMOL/L (3.5-5.1); SODIUM 143 MMOL/L (135-145); TOTAL CARBON DIOXIDE 30.8 MMOL/L (24-32); TOTAL PROTEIN 7.9 G/DL (6.4-8.2); eGFR 53 ML/MIN
--- NOTE | 2019-02-13 18:45 | NUR ---
Upon shift report patient was found to have left w/o discharge paper work or signing d/c paperwork.
[2019-02-13 18:47] VITALS: BP 119/75
== END 2019-02-13 18:52 | disposition home or self-care (01) ==
LOC: ER 17:07
DX: R19.7 Diarrhea, unspecified (principal); R11.2 Nausea with vomiting, unspecified; R10.33 Periumbilical pain; F41.9 Anxiety disorder, unspecified; F32.9 Major depressive disorder, single episode, unspecified; Z56.0 Unemployment, unspecified; Z88.8 Allergy status to other drugs, medicaments and biological substances; Z79.899 Other long term (current) drug therapy
CPT/HCPCS: 36415; 80053; 82150; 83690; 85025; 85610; 99283

== ENCOUNTER 2019-05-14 21:02 | Emergency (ER) | payer MEDICAID, OTHER ==
[~2019-05-14] VITALS: Ht 167.6 cm; Wt 81.8 kg
[2019-05-14] MEDS ORDERED: charcoal, activated 50 GM/240 ML bottle PO ONE (21:20)
--- NOTE | 2019-05-14 21:27 | NUR ---
CONTACTED POISON CONTROL CONTACTED, AGREES WITH ALL ORDERED LABS. RECOMMENDS REPEAT LITHIUM IN ORDER TO TRACK. 6 HRS MINIMUM OBERVAT
[2019-05-14 21:44] LABS: BASOPHILS # (AUTO) 0.1 X10'3 (0-0.2); BASOPHILS % (AUTO) 0.8 % (0-1); EOSINOPHILS # (AUTO) 0.1 X10'3 (0-0.9); EOSINOPHILS % (AUTO) 1.9 % (0-6); HEMATOCRIT 36.4 % (35.0-45.0); HEMOGLOBIN 12.7 g/dl (12.0-16.0); LYMPHOCYTES # (AUTO) 2.5 X10'3 (1.1-4.8); LYMPHOCYTES % (AUTO) 37.4 % (21-51); MEAN CORPUSCULAR HEMOGLOBIN 31.6 PG (27.0-31.0); MEAN CORPUSCULAR HGB CONC 34.8 g/dL (33.0-36.5); MEAN CORPUSCULAR VOLUME 90.9 FL (78-98); MEAN PLATELET VOLUME 7.5 FL (7.4-10.4); MONOCYTES # (AUTO) 0.4 X10'3 (0-0.9); MONOCYTES % (AUTO) 6.8 % (2-12); NEUTROPHILS # (AUTO) 3.5 X10'3 (1.8-7.7); NEUTROPHILS % (AUTO) 53.1 % (42-75); PLATELET COUNT 221 X10'3 (140-440); RED BLOOD COUNT 4.01 X10'6 (4.20-5.60); RED CELL DISTRIBUTION WIDTH 13.6 % (11.5-14.5); WHITE BLOOD COUNT 6.6 X10'3 (4.5-11.0)
[2019-05-14 21:47] LABS: CLARITY,URINE CLEAR (Clear); COLOR,URINE YELLOW (Yellow); GLUCOSE, URINE NEGATIVE (Neg); KETONES,URINE NEGATIVE (Neg); LEUKOCYTE ESTERASE ,URINE NEGATIVE (Neg); NITRITES, URINE NEGATIVE (Neg); OCCULT BLOOD,URINE TRACE-LYSED (Neg); PH,URINE 6.5 (4.8-8.0); PROTEIN,URINE NEGATIVE (Neg); UROBILINOGEN,URINE 0.2 E.U/dL (0.2-1.0)
[2019-05-14 21:51] LABS: URINE HCG NEGATIVE (NEG)
[2019-05-14 21:55] LABS: UA COLLECTION TYPE STRAIGHT CATH
[2019-05-14 21:56] LABS: BACTERIA,URINE FEW /HPF (Neg); RBC,URINE 0-2 /HPF (0-2); SQUAMOUS EPITHELIAL CELL,UR FEW /LPF (FEW); WBC,URINE NONE SEEN /HPF (0-4)
[2019-05-14 22:06] LABS: URINE AMPHETAMINE SCREEN NEGATIVE (Neg); URINE BARBITUATE SCREEN NEGATIVE (Neg); URINE BENZODIAZEPINES SCREEN NEGATIVE (Neg); URINE CANNABINOID SCREEN NEGATIVE (Neg); URINE COCAINE SCREEN NEGATIVE (Neg); URINE METHADONE SCREEN NEGATIVE (Neg); URINE OPIATE SCREEN NEGATIVE (Neg); URINE PHENCYCLIDINE SCREEN NEGATIVE (Neg)
[2019-05-14 22:10] LABS: ALANINE AMINOTRANSFERASE 20 U/L (12-78); ALBUMIN 3.7 G/DL (3.4-5.0); ALBUMIN/GLOBULIN RATIO 1.1 (1.1-1.5); ALKALINE PHOSPHATASE 102 IU/L (46-116); ANION GAP 9 (8-16); ASPARTATE AMINO TRANSFERASE 10 U/L (10-37); BILIRUBIN,TOTAL 0.5 MG/DL (0.1-1.0); BLOOD UREA NITROGEN 9 MG/DL (7-18); CALCIUM 8.6 MG/DL (8.5-10.1); CHLORIDE 107 MMOL/L (99-107); CREATININE 1.12 MG/DL (0.40-0.90); GLUCOSE 109 MG/DL (70-104); POTASSIUM 3.5 MMOL/L (3.5-5.1); SODIUM 141 MMOL/L (135-145); TOTAL CARBON DIOXIDE 24.8 MMOL/L (24-32); eGFR 52 ML/MIN
[2019-05-14 22:11] LABS: ACETAMINOPHEN < 2.0 UG/ML (10-30); ETHANOL < 0.010 GM/DL (0.0-0.010)
[2019-05-15] MEDS ORDERED: normal saline 1000ml 1,000 ML IV ONE ×2 (02:00→03:10)
--- NOTE | 2019-05-15 02:01 | NUR ---
BP taken 3x around 0120 with low SBP in the 80s. made aware. N.O. received to give NS 1L bolus now.
--- NOTE | 2019-05-15 02:55 | NUR ---
Pt. woke up and reports a 7/10 chest tightness and midsternal discomfort at around 0250. Cardiac monitoring also shows sinus tach with a rate of 160. Dr. Nava made aware and received order for repeat EKG.
--- NOTE | 2019-05-15 03:01 | NUR ---
EKG completed as requested by the patients nurse. Patient resting comfortably at this time. Will continue to moniter, Q15 for safety.
--- NOTE | 2019-05-15 03:02 | NUR ---
EKG results reviewed by . N.O. received for NS 1L bolus, and ketorolac 15mg IVP for pain. Current VS: HR 148, RR 30, BP 96/56
[2019-05-15] MEDS ORDERED: ketorolac tromethamine 15mg/ml inj. IV ONE (03:10)
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
--- NOTE | 2019-05-15 03:47 | NUR ---
Received follow up call from [place] [facility] and spoke with Juan Antonio. Update and pt status provided to agent. Per Juan Antonio, hypotension is expected findings and all interventions being carried out are appropriate. No further recommendations at this time.
--- NOTE | 2019-05-15 03:55 | NUR ---
Spoke with Dr. Martell's regarding initial Poison Control recommendation for repeat lithium levels. Per Juan Antonio, this is only a soft recommendation. No indication for repeat lithium levels found to be necessary at this time.
[2019-05-15] MEDS ORDERED: CLON1TAB12 PO (05:10)
[2019-05-15] MEDS ORDERED: clonazePAM 1mg tablet PO PRN (05:25)
--- NOTE | 2019-05-15 07:00 | NUR ---
pt is resting. no concerns at this time
--- NOTE | 2019-05-15 08:00 | NUR ---
pt is resting. no concerns at this time. bp is stable
--- NOTE | 2019-05-15 09:00 | NUR ---
pt is resting. no concerns at this time.
--- NOTE | 2019-05-15 10:15 | NUR ---
pt is resting. no concerns at this time. pt vital signs have been stable. pt is on bedside monitor
--- NOTE | 2019-05-15 10:17 | NUR ---
pt is resting. no concerns at this time
--- NOTE | 2019-05-15 11:00 | NUR ---
bp 125/58. pt is still sleeping. vvs
--- NOTE | 2019-05-15 12:00 | NUR ---
poision control called for update. case is closed
--- NOTE | 2019-05-15 13:00 | NUR ---
pt is resting. no concerns at this time. pt still sleeping
--- NOTE | 2019-05-15 14:00 | NUR ---
pt is resting. no concerns at this time. pt still sleeping
--- NOTE | 2019-05-15 15:05 | NUR ---
Patient sleeping, no signs of distress noted.
--- NOTE | 2019-05-15 15:51 | NUR ---
pt is resting. no concerns at this time. pt still sleeping
--- NOTE | 2019-05-15 15:52 | NUR ---
bp 120/55
--- NOTE | 2019-05-15 16:00 | NUR ---
pt is still sleeping
--- NOTE | 2019-05-15 17:00 | NUR ---
pt is still sleeping. no change in condition. vital signs are stable
--- NOTE | 2019-05-15 19:15 | NUR ---
recvd report patient sleeping at change of shift. RR even and unlabored no s/s distress
--- NOTE | 2019-05-15 22:29 | NUR ---
pt laying in bed sleeping no s/s distress
--- NOTE | 2019-05-16 00:42 | NUR ---
Pt is laying on her back asleep rr even and unlabored no s/s distress
--- NOTE | 2019-05-16 02:33 | NUR ---
Pt asleep laying on her back rr even and unlabored no s/s distress
--- NOTE | 2019-05-16 11:45 | NUR ---
Estefany cisneros in [facility] - 05/16/19 at 2259 by XI PT TO XRAY WITH NEWSROOM INTERN VIA WHEEL CHAIR
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
--- NOTE | 2019-05-16 13:02 | NUR ---
Pt refused seeing friends, Halle & Abhilash, that were in ER Lobby hoping to visit.
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
--- NOTE | 2019-05-16 14:40 | NUR ---
Pt with friend "Mic" visiting at bedside.
[2019-05-16] MEDS ORDERED: QUET200T5 PO (18:20)
--- NOTE | 2019-05-16 18:50 | NUR ---
PT UP OUT OF BED TO BATHROOM . SITTER AT BATHROOM DOOR WITH THE FOOR SLIGHTLY A JAR T OKEEP PT IN THE LINE OF SITE. PT HAS BM AND CALLS NURSE TO [facility] TO OBSERVED MOVEMENT IN [facility] ASKING WHAT WAS IN IT . BM WAS WNL REGULAR FORMED STOOL REASSURED PT THAT THERE WAS NOTHING WRONG WITH HER STOOL
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
--- NOTE | 2019-05-16 19:45 | NUR ---
PT RESTING PEACFULLY IN BED . RESP UNLABORED IN THE LINE OF SITE OF STAFF WILL CONTINUE TO MONITOR AND REASSESS
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
--- NOTE | 2019-05-16 20:15 | NUR ---
PT DOES APPEAR TO BE GAURDING RIGHT SHOULDER WHEN REPOSITIONING IN BED SHE TENDS TO NOT WANT TO USE HER ARM BECAUSE OF ITS DISCOMFORT
[2019-05-16] MEDS ORDERED: quetiapine 100mg tablet PO SCH (21:00)
--- NOTE | 2019-05-16 21:00 | NUR ---
PT RESTING PEACFULLY ON LEFT SIDE RESP UNLOBORED WILL CONTINUE TO MONITOR AND REASSESS IN THE LINE OF SITE OF STAFF
--- NOTE | 2019-05-16 22:15 | NUR ---
NATACHA REID TO SEE PT SHOULDER
--- NOTE | 2019-05-16 22:45 | NUR ---
PT TO XRAY WITH METAL FURNITURE POLISHER VIA WHEEL CHAIR
--- NOTE | 2019-05-16 22:54 | NUR ---
PT BACK FROM XRAY . INDEPENDENTLY REPOSITIONED HERSELF BACK IN BED
--- NOTE | 2019-05-17 00:20 | NUR ---
PT SLEEPING PEACFULLY ON LEFT SIDE NO CHANGES TO PREVIOUS ASSESSMENT RESP UNLABORED PT SELF POSTIONS NEEDED
--- NOTE | 2019-05-17 01:00 | NUR ---
PT SLEEPING PEACFULLY ON RIGHT SIDE . RESP UNLABORED IN THE LINE OF SIGHT OF STAFF
--- NOTE | 2019-05-17 02:44 | NUR ---
PT UP OUT OF BED TO VOID ASKED FOR JUICE. PT ALSO ASKED IF SHE COULD PHONE HER EMPLOYER IN [place] AM TO LET THEM KNOW SHE IS IN THE HOSPITAL . STATED THAT HER FAMILY ALREADY DID SO FOR HER ON WEDNESDAY, BUT SHE FEELS SHE SHOULD SPEAK WITHTHEM HERSELF IN THE AM . INSTRUCTED PATIENT THAT AFTER 8 AM SHE WILL BE ABLE TO USE THE PHONE TO CALL HER EMPLOYER .
--- NOTE | 2019-05-17 03:19 | NUR ---
PT SLEEPING PEACEFULLY ON HER RIGHT SIDE RESP UNLABORED IN THE LINE OF SIGHT OF STAFF WILL CONTINUE TO MONITOR ADN REASSESS
--- NOTE | 2019-05-17 04:20 | NUR ---
PT SLEEPING PEACFULLY ON HER BACK RESP UNLABORED WILL CONTINUE TO MONITOR AND REASSESS
--- NOTE | 2019-05-17 05:42 | NUR ---
PT SLEEPING ON HER RIGHT SIDE RESP UNLABORED NO CHANGES TO PREVIOUS ASSESSMENT WILL CONTINUE TO MONITOR AND REASSESS
[2019-05-17 06:13] VITALS: BP 112/69
== END 2019-05-17 15:45 | disposition home or self-care (01) ==
LOC: ER 21:04
DX: T42.4X2A Poisoning by benzodiazepines, intentional self-harm, initial encounter (principal); F32.9 Major depressive disorder, single episode, unspecified; F41.9 Anxiety disorder, unspecified; Z56.0 Unemployment, unspecified; Z88.8 Allergy status to other drugs, medicaments and biological substances; Z79.899 Other long term (current) drug therapy; Y92.89 Other specified places as the place of occurrence of the external cause
CPT/HCPCS: 36415; 80053; 80178; 80305; 80320; 80329; 81001; 81025; 85025; 93005; 96374; 99285; J1885; J7030

== ENCOUNTER 2019-05-17 14:09 | Inpatient (IN) | payer MEDICAID, OTHER ==
[~2019-05-17] VITALS: Ht 162.6 cm; Wt 97.8 kg
[~2019-05-17 14:09] MED LIST changes: +CLON1TAB12 PO; +QUET200T5 PO
[2019-05-17] MEDS ORDERED: loperamide 2mg capsule PO PRN (15:05)
[2019-05-17] MEDS ORDERED: hydrOXYzine 25 MG tablet PO PRN (15:05)
[2019-05-17] MEDS ORDERED: mag hydrox/Alum hydrox/simeth 30ml oral suspension PO PRN (15:05)
[2019-05-17] MEDS ORDERED: magnesium hydroxide 30ml (MOM) UD suspension PO PRN (15:05)
[2019-05-17] MEDS ORDERED: acetaminophen 325mg tablet PO PRN ×2 (15:05)
[2019-05-17] MEDS ORDERED: LORazepam 0.5 MG tablet PO PRN (15:05)
[2019-05-17 15:29] VITALS: BP 127/81
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
[2019-05-17 20:00] VITALS: BP 113/72
[2019-05-17] MEDS: quetiapine 100mg tablet PO SCH (20:39)
[2019-05-17] MEDS: clonazePAM 1mg tablet PO PRN (20:40)
[2019-05-17] MEDS ORDERED: QUETIAPINE 200 MG TAB.SR.24H PO SCH (21:00)
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
[2019-05-18 07:13] VITALS: BP 103/71
[2019-05-18 07:30] LABS: HEMOGLOBIN A1C 5.1 % (4.5-6.2)
[2019-05-18 07:38] LABS: CHOL/HDL RATIO 3.1 (0.00-4.99); CHOLESTEROL 169 MG/DL (0-200); HDL CHOLESTEROL 55 MG/DL (35-60); LDL CHOLESTEROL 97 MG/DL (50-100); TRIGLYCERIDES 143 MG/DL (20-135)
[2019-05-18] MEDS: quetiapine 100mg tablet PO SCH ×2 (08:06→21:03)
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
[2019-05-18] MEDS ORDERED: ibuprofen 200mg tablet PO PRN (10:05)
[2019-05-18] MEDS: clonazePAM 1mg tablet PO PRN (13:07)
[2019-05-18] MEDS ORDERED: duloxetine 30mg CAPSULE.DR PO ONE (14:50)
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
[2019-05-18 20:00] VITALS: BP 127/93
[2019-05-18] MEDS: clonazePAM 1mg tablet PO SCH (21:03)
--- NOTE | 2019-05-18 22:00 | NUR ---
Nursing Note: Pt. shows this appeals writer a bruised and slightly indurated area on her rt. F/A at a previous IV site. Area shows no s/s of redness, warmth, or infection. Brigido MANZANO notified, and pictures obtained and placed in chart. Will monitor.
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
[2019-05-19 08:10] VITALS: BP 103/68
[2019-05-19] MEDS: duloxetine 30mg CAPSULE.DR PO SCH (08:17)
[2019-05-19] MEDS: quetiapine 100mg tablet PO SCH ×2 (08:17→21:01)
[2019-05-19] MEDS: clonazePAM 1mg tablet PO SCH ×2 (08:17→21:01)
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
[2019-05-19 20:00] VITALS: BP 124/79
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
[2019-05-20] MEDS: duloxetine 30mg CAPSULE.DR PO SCH (07:39)
[2019-05-20] MEDS: quetiapine 100mg tablet PO SCH (07:39)
[2019-05-20] MEDS: clonazePAM 1mg tablet PO SCH (07:39)
[2019-05-20 08:00] VITALS: BP 114/69
[2019-05-20] MEDS ORDERED: CLON1TAB12 PO (14:30)
[2019-05-20] MEDS ORDERED: HYDR-3686 PO (14:30)
[2019-05-20] MEDS ORDERED: DULO30CA52 PO (14:30)
[2019-05-20] MEDS ORDERED: QUET100T33 PO (14:30)
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
== END 2019-05-20 19:00 | disposition still patient (30) | DRG 754 ==
LOC: ADULT MH 14:09
PROVIDERS: ADMIT Psychiatry & Neurology Psychiatry; ATTEND Psychiatry & Neurology Psychiatry
DX: F32.9 Major depressive disorder, single episode, unspecified (principal); F43.10 Post-traumatic stress disorder, unspecified; T14.91XA Suicide attempt, initial encounter; T50.902A Poisoning by unspecified drugs, medicaments and biological substances, intentional self-harm, initial encounter
CPT/HCPCS: 36415; 80061; 83036; 87081; 99285

== ENCOUNTER 2025-02-17 13:15 | Emergency (ER) | payer MEDICAID, OTHER ==
[~2025-02-17] VITALS: Ht 162.6 cm; Wt 102.1 kg
[~2025-02-17 13:15] MED LIST changes: -CLON0.5T4 PO; -DIAZ5TAB PO; -DIVA500T9 PO; +DULO30CA52 PO; +HYDR-3686 PO; -HYDR-4383 PO; -KETO10TA2 PO; -LEVO750T46 PO; -LORA10TA65 PO; -ONDA4TAB6 PO; -ONDA8TAB6 PO; -OXYB5TAB16 PO; -OXYC-145 PO; -PHEN-824 PO; +QUET100T34 PO; -QUET200T5 PO; -QUET50TA15 PO; -ZOLP5TAB8 PO
[2025-02-17 13:31] VITALS: TEMP 97.6
[2025-02-17 14:36] LABS: MEAN PLATELET VOLUME 6.4 FL (7.4-10.4); RED CELL DISTRIBUTION WIDTH 13.9 % (11.5-14.5)
[2025-02-17 14:52] LABS: CREATININE 0.88 MG/DL (0.40-0.90); TOTAL CARBON DIOXIDE 28.2 MMOL/L (24-32); eCRCL 65 ML/MIN; eGFR 67 ML/MIN
--- NOTE | 2025-02-17 14:59 | Physician Documentation ---
History of Present Illness ~ Chief Complaint: Constipation Stated Complaint: SEE CHIEF COMPLAINT Time Seen by MD: 14:09 Primary Medical Doctor: ALEX MAYBERRY HPI 54-year-old female with a stated history of bipolar disorder who presents due to concerns for three days of no bowel movement and no flatus. She was seen at a local urgent care, and was directed here due to an abnormal abdominal x-ray suggestive of obstruction. She reports that she has tried multiple [id number] interventions to have a bowel movement without success. Recent normal Cologuard, but has never had a colonoscopy. No opioid use. No history of abdominal surgeries. Medication Reconciliation Allergies: Coded Allergies: Morpholine Analogues (Verified Allergy, Intermediate, 02/17/25) diazepam (Verified Adverse Reaction, Intermediate, 02/17/25) Paradoxical Rxn Scheduled Duloxetine HCl (Duloxetine HCl), 30 MG PO DAILY Quetiapine Fumarate (Quetiapine Fumarate), 200 MG PO BID Scheduled PRN Clonazepam (Clonazepam), 1 MG PO DAILY PRN for anxiety, (Reported) Clonazepam (Clonazepam), 1 MG PO BID PRN for anxiety Hydroxyzine Hcl* (Atarax*), 50 MG PO Q4H PRN for ANXIETY Past Medical History Past Medical History: Arrhythmia, Anxiety, Depression Past Surgical History: no surgical history Patient History: FHx: suicide FATHER Patient's mother is still living Alcohol Use: None Drug Use: none Lives with: Family Lives In: Home Occupation: unemployed Review of Systems ROS As stated above in the HPI, otherwise all systems are reviewed and negative. Physical Exam Vital Signs: Temperature: 97.6, Heart Rate: 85, Respiratory Rate: 18, BP: 118/85, Pulse Oximetry: 98, Weight: 102.100 Oxygen Flow Rate: 0 Physical Exam General: Alert, no apparent distress. Neck: Full range of motion. Respiratory: Lungs clear, no respiratory distress. Chest: No accessory muscle use. Cardiovascular: Regular rate and rhythm, no murmurs. Gastrointestinal: Mildly distended, diffusely TTP. Bowel sounds hypoactive. Extremities: Normal range of motion, no deformity. Neurologic: Oriented x4. Psychiatric: Normal mood and affect. Skin: Normal color, warm and dry. No edema, no ecchymosis. Progress Results/Orders Results/Orders Orders - GUSTABO SPENCER NP Urinalysis, Cult If Indicated (02/17/25 14:07) Saline Lock (02/17/25 14:07) Ct Abdomen Pelvis (02/17/25 14:45) Completed Orders - GUSTABO SPENCER WHEELCHAIR VAN DRIVER Cbc/Diff (02/17/25 14:07) Lipase (02/17/25 14:07) Hcg, Ur Ql (02/17/25 14:07) BMP (02/17/25 14:07) Liver Panel (02/17/25 14:07) Ct Abdomen Pelvis (02/17/25 14:45) Normal Saline 1000ml (0.9% Sodium Chlori (02/17/25 14:50) Ondansetron Inj. (Zofran 4mg/2ml Vial) (02/17/25 14:50) Iohexol 300mg/Ml 100ml Inj. (Omnipaque-3 (02/17/25 15:15) Magnesium Hydrox Oral Susp. (Milk Of Mag (02/17/25 16:15) Bisacodyl Suppository (Dulcolax Supposit (02/17/25 16:12) Medications Received in ER Medications (Trade) Dose Ordered Sig/Kaiden Route PRN Reason Start Time Stop Time Status Last Admin Dose Admin Sodium Chloride 1,000 ml @ 1,000 mls/hr ONCE ONCE IV 02/17/25 14:50 02/17/25 15:49 DC 02/17/25 15:50 1,000 MLS/HR (Zofran 4mg/2ml vial) 4 mg ONCE ONCE IV 02/17/25 14:50 02/17/25 14:51 DC 02/17/25 15:50 4 MG (milk of magnesia oral suspension) 30 ml ONCE ONCE PO 02/17/25 16:15 02/17/25 16:16 DC 02/17/25 16:23 30 ML (Dulcolax suppository) 10 mg ONCE STAT RC 02/17/25 16:12 02/17/25 16:15 DC 02/17/25 16:24 10 MG Vital Signs 02/17/25 02/17/25 02/17/25 02/17/25 13:31 15:01 15:03 15:53 Temp 97.6 Pulse 85 81 86 Resp 18 16 16 16 B/P (MAP) 118/85 101/77 (85) 107/80 (89) Pulse Ox 98 92 94 O2 Flow Rate 0 0 0 Laboratory Tests Test 02/17/25 14:21 02/17/25 16:04 White Blood Count 4.4 L Red Blood Count 3.81 L Hemoglobin 12.4 Hematocrit 35.6 Mean Corpuscular Volume 93.4 Mean Corpuscular Hemoglobin 32.5 H Mean Corpuscular Hemoglobin Concent 34.8 Red Cell Distribution Width 13.9 Platelet Count 217 Mean Platelet Volume 6.4 L Neutrophils (%) (Auto) 50.6 Lymphocytes (%) (Auto) 29.8 Monocytes (%) (Auto) 17.0 H Eosinophils (%) (Auto) 2.0 Basophils (%) (Auto) 0.6 Neutrophils # (Auto) 2.2 Lymphocytes # (Auto) 1.3 Monocytes # (Auto) 0.7 Eosinophils # (Auto) 0.1 Basophils # (Auto) 0.0 CBC Comment Sodium Level 133 L Potassium Level 4.3 Chloride Level 96 L Carbon Dioxide Level 28.2 Anion Gap 9 Blood Urea Nitrogen 10 Creatinine 0.88 Estimated GFR/1.73 m2 67 BUN/Creatinine Ratio 11.4 Glucose Level 96 Calcium Level 9.5 Total Bilirubin 0.4 Direct Bilirubin 0.1 Aspartate Amino Transf (AST/SGOT) 15 Alanine Aminotransferase (ALT/SGPT) 18 Alkaline Phosphatase 73 Total Protein 7.4 Albumin 3.3 L Globulin 4.1 Albumin/Globulin Ratio 0.8 L Lipase 44 Chemistry Comments Urine HCG, Qualitative Negative Urine Comment EKG/XRAY/CT/US/VASC/MRI CT : [place] [id number] CAT SCAN Patient: NICO MÉNDEZ Medical Record: [id number] [facility] : 1970, Age: 54 Sex: Female Location: ER Patient Status: REG ER Service Date/Time: 02/17/25/ 1445 Ordering Physician: GUSTABO SPENCER WHEELCHAIR VAN DRIVER Exam: CT ABDOMEN PELVIS Exam: CT CT ABDOMEN PELVIS W/ IV CONTRAST History: no bm or gas x 3 days Comparison Study: None TECHNIQUE: Multidetector CT of the abdomen pelvis with IV contrast. Axial, coronal and sagittal multiplanar reformats were obtained from the axial data set by the technologist. Radiation Dose Information: CT Dose: CTDI volume is 17.96 mGy. Dose-length product is 106.97 mGy*cm FINDINGS: The lung bases are clear. Partially visualized heart is unremarkable. Mild hepatomegaly with hepatic steatosis. Mild splenomegaly. The gallbladder is contracted. Pancreas is unremarkable. Kidneys, ureters and urinary bladder unremarkable. Uterus and adnexa unremarkable. Mild gastric wall thickening. Small bowel loops unremarkable. Appendix is unremarkable. Large amount of fecal material within the colon. No evidence of intraperitoneal free air or free fluid. No evidence of aortic aneurysm or dissection. No significant lymphadenopathy. Tiny fat containing umbilical hernia. The soft tissues unremarkable. No evidence of acute osseous abnormalities. IMPRESSION: Mild gastric wall thickening which is most likely from inadequate distention with mild gastritis not excluded. Constipation. Mild hepatomegaly with hepatic steatosis. Electronically Signed by:LOUISE GAYLE DO Date & Time: 02/17/251604 Dictated by: LOUISE GAYLE DO Dictation date and time: 02/17/251604 Primary Care Provider: NO PRIMARY CARE PROVIDER cc: GUSTABO SPENCER WHEELCHAIR VAN DRIVER ~ Medical Decision Making Additional information obtaine: family Findings Mother at bedside, assists in providing hx. Diff Dx GI Bleed:Consideration: Include: Other Diff Dx Pain:Considerations: Include: Other Diff Dx N/V/D:Considerations: Include: Other Diff Dx Rectal:Considerations: Include: Other Additional Comments Most Likely Diagnoses Functional (primary) constipation: The most common cause in middle-aged women, especially with a history of chronic symptoms and lack of alarm features. OTC treatment failure is not uncommon in slow-transit or defecatory disorders.[1] Irritable bowel syndrome constipation predominant (IBS-C): IBS-C can present with episodic constipation, mild distension, and rectal bleeding from straining. The [place] [employer] recommends using the Brice IV criteria and [place] Stool Form Scale to subtype IBS.[2] Fecal impaction: Presents with obstipation, mild distension, and sometimes rectal bleeding due to mucosal trauma. Diagnosis is confirmed by digital rectal exam or imaging.[3] Hemorrhoids or anal fissure: Bright red blood on wiping is most commonly due to hemorrhoids or fissures, especially in the setting of constipation and straining.[4] Medication-induced constipation: Consider if the patient is taking opioids, anticholinergics, or other constipating agents.[5] Metabolic/endocrine causes (e.g., hypothyroidism): Hypothyroidism can cause constipation, but usually with other systemic symptoms; still, it should be considered.[6] Most Important Not to Miss Diagnoses Complete large-bowel obstruction: Presents with obstipation, distension, and inability to pass gas or stool. Imaging (CT abdomen/pelvis) is required to rule out obstruction, especially if symptoms are acute and severe.[7-8] Colonic volvulus: Sigmoid volvulus can present with progressive distension and obstipation. The [place] [employer] recommends early imaging to confirm diagnosis.[9] Colorectal cancer: A normal Cologuard test reduces but does not eliminate the risk; persistent symptoms or new-onset constipation in a patient over 50 warrants further evaluation, typically with colonoscopy.[10] Departure Time of Disposition: 16:35 Disposition: 01 HOME / SELF CARE / HOMELESS Impression: Primary Impression: Constipation Condition: Stable Discharge Instructions: Constipation, Adult Additional Instructions: No bowel obstruction on CT scan. Labs looked good. You were given a suppository and milk of magnesia in the ER. You will be sent with the additional medications to try at home. Follow up with your primary care provider within the next few days. Return if worse at any time. Referrals: NO PRIMARY CARE PROVIDER (PCP) Prescriptions Bisacodyl (Dulcolax) 10 Mg Supp.rect 1 SUPP RC DAILY for constipation for 10 Days, #10 SUPP 0 Refills Prov: GUSTABO SPENCER NP 02/17/25 Magnesium Citrate (Magnesium Citrate) 296 Ml Solution 296 ML PO ONCE for 1 Day, #296 ML Prov: GUSTABO SPENCER NP 02/17/25 Education Educated: Patient Educated regarding: diagnosis, treatment, prognosis, need for follow up Signature Scribe Signature: x Attestation: The note accurately reflects work and decisions made by me.Gustabo Freeman NP 02/17/25 14:57 GUSTABO SPENCER WHEELCHAIR VAN DRIVER Feb 17, 2025 14:59
[2025-02-17] MEDS ORDERED: iohexol 300mg/ml 100ml inj. ONE (15:15)
[2025-02-17] MEDS: ondansetron/PF 4mg/2ml inj IV ONE (15:50)
[2025-02-17] MEDS: normal saline 1000ml 1,000 ML IV ONE (15:50)
--- NOTE | 2025-02-17 16:08 | RADIOLOGY REPORT ---
Exam: CT CT ABDOMEN PELVIS W/ IV CONTRAST History: no bm or gas x 3 days Comparison Study: None TECHNIQUE: Multidetector CT of the abdomen pelvis with IV contrast. Axial, coronal and sagittal multiplanar reformats were obtained from the axial data set by the technologist. Radiation Dose Information: CT Dose: CTDI volume is 17.96 mGy. Dose-length product is 106.97 mGy*cm FINDINGS: The lung bases are clear. Partially visualized heart is unremarkable. Mild hepatomegaly with hepatic steatosis. Mild splenomegaly. The gallbladder is contracted. Pancreas is unremarkable. Kidneys, ureters and urinary bladder unremarkable. Uterus and adnexa unremarkable. Mild gastric wall thickening. Small bowel loops unremarkable. Appendix is unremarkable. Large amount of fecal material within the colon. No evidence of intraperitoneal free air or free fluid. No evidence of aortic aneurysm or dissection. No significant lymphadenopathy. Tiny fat containing umbilical hernia. The soft tissues unremarkable. No evidence of acute osseous abnormalities. IMPRESSION: Mild gastric wall thickening which is most likely from inadequate distention with mild gastritis not excluded. Constipation. Mild hepatomegaly with hepatic steatosis.
[2025-02-17] MEDS: magnesium hydroxide 30ml (MOM) UD suspension PO ONE (16:23)
[2025-02-17] MEDS: bisacodyl 10mg suppository rectal RC STA (16:24)
[2025-02-17 16:31] LABS: LEUKOCYTE ESTERASE ,URINE NEGATIVE (Neg); NITRITES, URINE NEGATIVE (Neg); OCCULT BLOOD,URINE TRACE-INTACT (Neg)
[2025-02-17 16:32] LABS: URINE HCG NEGATIVE (NEG)
[2025-02-17] MEDS ORDERED: MAGN296S89 PO (16:36)
[2025-02-17] MEDS ORDERED: BISA10SU60 RC (16:36)
[2025-02-17 16:41] VITALS: BP 122/82; PULSE 82; RESP 16; O2SAT 96
[2025-02-17 16:41] LABS: UA COLLECTION TYPE CLN CATCH MIDSTREAM
[2025-02-17 16:43] LABS: MUCUS STRANDS NONE SEEN /LPF (Neg); SQUAMOUS EPITHELIAL CELL,UR FEW /LPF (FEW)
== END 2025-02-17 16:51 | disposition home or self-care (01) ==
LOC: ER 13:16
DX: K59.00 Constipation, unspecified (principal); F31.9 Bipolar disorder, unspecified; F41.9 Anxiety disorder, unspecified; F32.A Depression, unspecified; Z56.0 Unemployment, unspecified; Z88.8 Allergy status to other drugs, medicaments and biological substances; Z79.899 Other long term (current) drug therapy
CPT/HCPCS: 36415; 74177; 80048; 80076; 81001; 81025; 83690; 85025; 96361; 96374; 99285; J2405; J7030; Q9967